=== PATIENT | male | born 1945 | race Caucasian/White ===

== ENCOUNTER 2017-11-27 19:28 | Inpatient (IN) | payer MEDICARE ==
[~2017-11-27] VITALS: Ht 172.7 cm; Wt 89.0 kg
[~2017-11-27 19:28] MED LIST: NORCO1 TA1 PO
--- NOTE | 2017-11-27 19:40 | NUR ---
PT WHEELED TO ROOM [address] MONTEMAYOR INFORMED ABOUT PT.
[2017-11-27] MEDS ORDERED: CANNABIS OIL (19:54)
--- NOTE | 2017-11-27 20:17 | NUR ---
MEDICATED WITH MOTRIN 800 FOR FEVER AND FLUID INFUSING.
[2017-11-27 20:32] LABS: HEMATOCRIT 37.9 % (39.0-50.0); HEMOGLOBIN 12.9 g/dl (14.0-18.0); MEAN CELL VOLUME 85.4 fL CALC (80.0-100.0); MEAN CORPUSCULAR HGB 29.1 pG CALC (26.0-32.0); PLATELET COUNT 391 thou/uL (130-400); RED BLOOD COUNT 4.44 mill/uL (4.70-6.10); RED CELL DISTRI WIDTH 12.8 % (11.5-15.5)
[2017-11-27 20:54] LABS: ALBUMIN 3.8 g/dL (3.2-5.0); ALKALINE PHOSPHATASE 97 u/l (38-126); ANION GAP 19 (6-22 (CALC)); BILIRUBIN, TOTAL 0.3 mg/dL (0.0-1.4); BUN 14 mg/dL (8-23); BUN/CREATININE RATIO 15 (12-20 (CALC)); CARBON DIOXIDE 24 mmol/l (22-30); CHLORIDE 99 mmol/l (95-108); GFR > 60 ML/MIN (>=60 (CALC)); GFR FOR AFR.AMER. > 60 ML/MIN (>=60 (CALC)); POTASSIUM 4.4 mmol/l (3.5-5.1); SGOT/AST 26 u/l (19-48); SGPT/ALT 44 u/l (11-66); SODIUM 138 mmol/l (137-146); TOTAL PROTEIN 7.5 g/dL (6.3-8.2)
--- NOTE | 2017-11-27 21:02 | NUR ---
IV ABX STARTED. REQUEST UA SAMPLE. PT HAS A UROSTOMY ON RLQ ABD W/HERNIA. AWARE, WILL REASSESS PT. PT JOKING WITH STAFF THAT HES "A DIRTY OLD MAN"
[2017-11-27 21:05] LABS: MANUAL DIFFERENTIAL YES
[2017-11-27 21:06] LABS: MYOGLOBIN 81 ng/mL (0 - 121)
[2017-11-27 21:27] LABS: BAND 15 % (0-8)
[2017-11-27 21:44] LABS: INFLUENZA A NONE DETECTED (NONE DETECT); INFLUENZA B NONE DETECTED (NONE DETECT)
--- NOTE | 2017-11-27 22:07 | NUR ---
VALE HUYNH RESUMED CARE OF PT.
[2017-11-27 22:12] LABS: URINE BILIRUBIN - DIPSTICK NEGATIVE (NEGATIVE); URINE BLOOD DIPSTICK LARGE (NEGATIVE); URINE COLOR YELLOW; URINE GLUCOSE - DIPSTICK NEGATIVE (NEGATIVE); URINE KETONE NEGATIVE (NEGATIVE); URINE NITRITE - DIPSTICK NEGATIVE (Negative); URINE PROTEIN - DIPSTICK 100 mg/dL (NEG-TRACE); URINE SPECIFIC GRAVITY 1.015; URINE UROBILINOGEN - DIPSTICK 0.2 E.U./dL (0.2)
[2017-11-27 22:17] LABS: URINE CLARITY CLOUDY; URINE LEUK ESTERASE SMALL (NEGATIVE)
[2017-11-27 22:19] LABS: URINE BACTERIA FEW hpf; URINE RBC TNTC RBC/hpf (0-5); URINE SQUAMOUS EPITHELIAL CELL FEW EPI/hpf (0-FEW)
--- NOTE | 2017-11-27 22:56 | NUR ---
NORMAL SALINE FLUID BOLUS INFUSING.
--- NOTE | 2017-11-27 23:14 | NUR ---
Admission Note Report Given to: EITAN Transported by: Wheelchair X Stretcher Transported with: X Nurse Transporter X Patent IV X O2 X Clinic Office Manager
--- NOTE | 2017-11-27 23:24 | NUR ---
PT ARRIVED TO UNIT VIA STRETCHER WITH ER STAFF. AMBULATED TO BED INDEPENDENTLY. C/O GENERALIZED PAIN 04/04. STATES THAT MOTRIN WAS EFFECTIVE, BUT THE PAIN IS COMING BACK. SHORT OF BREATH WITH EXERTION AND OXYGEN IN PLACE. ORIENTED TO ROOM AND CALL LIGHT SYSTEM. PLAN OF CARE DISCUSSED. PT ENCOURAGED TO VERBLIZE CONCERNS. STATES UNDSTANDING. SAFETY MEASURES IN PLACE. CALL LIGHT WITHIN REACH.
[2017-11-28 00:20] VITALS: BP 135/66
--- NOTE | 2017-11-28 01:30 | NUR ---
PT PERISTENTLY C/O NOT BEING ABLE SLEEP STATING THAT HE HAS NOT SLEPT FOR 4 DAYS. PACING AROUND ROOM AND APPEARS VERY ANXIOUS. RESTORIL GIVEN WITH GOOD EFFECT. PT IS NOW ALSEEP WITH NO SIGNS OF DISTRESS NOTED. RESPIRATIONS EVEN AND UNLABORED ON OXYGEN. IV ABT INFUSING AT THIS TIME WITH NO ADVERSE EFFECT NOTED. USING URINAL TO VOID. SAFETY MEASURES IN PLACE. CALL LIGHT WITHIN REACH.
--- NOTE | 2017-11-28 04:06 | NUR ---
PT ASLEEP AT THIS TIME WITH NO SIGNS OF DISTRESS NOTED. RESPIRATIONS EVEN AND UNLABORED. NON PRODUCTIVE COUGH NOTED. IV SITE APPEARS HEALTHY. SAFETY MEASURES IN PLACE. CALL LIGHT WITHIN REACH.
[2017-11-28 05:20] VITALS: BP 128/71
[2017-11-28 06:32] LABS: HEMATOCRIT 34.2 % (39.0-50.0); HEMOGLOBIN 11.3 g/dl (14.0-18.0); MEAN CELL VOLUME 88.1 fL CALC (80.0-100.0); MEAN CORPUSCULAR HGB 29.1 pG CALC (26.0-32.0); RED BLOOD COUNT 3.88 mill/uL (4.70-6.10); RED CELL DISTRI WIDTH 12.9 % (11.5-15.5)
[2017-11-28 06:44] LABS: ANION GAP 16 (6-22 (CALC)); BUN 11 mg/dL (8-23); BUN/CREATININE RATIO 12 (12-20 (CALC)); CARBON DIOXIDE 27 mmol/l (22-30); CHLORIDE 107 mmol/l (95-108); CREATININE 0.9 mg/dL (0.7-1.3); GFR > 60 ML/MIN (>=60 (CALC)); GFR FOR AFR.AMER. > 60 ML/MIN (>=60 (CALC)); POTASSIUM 4.4 mmol/l (3.5-5.1); SODIUM 146 mmol/l (137-146)
[2017-11-28 08:40] VITALS: BP 142/69
--- NOTE | 2017-11-28 08:40 | NUR ---
ASSESSMENR IS COMPLETED: IV SITE WAS FOUND DISLODGED . BREATH SOUNDS ARE CLEAR, BILATERALLY. TELE MONITOR IN PLACE. CONTINUE TO OSBERVE AND MONITOR.
[2017-11-28 11:50] VITALS: BP 140/67
--- NOTE | 2017-11-28 12:30 | NUR ---
PT IS RELAXING IN BED WITH NO DISTRESS NOTED. IV SITE IS FREE FROM REDNESS OR EDEMA. FAMILY HAS BEEN VISITING
--- NOTE | 2017-11-28 16:30 | NUR ---
PT IS RELAXING IN BED AND HAS BEEN VISITING WITH FAMILY. NO DISTRESS NOTED. IV SITE IS FREE FROM REDNESS OR EDEMA.
[2017-11-28 16:35] VITALS: BP 136/70
[2017-11-28 19:40] VITALS: BP 157/84
--- NOTE | 2017-11-28 19:45 | NUR ---
PATIENT RESTING IN BED AT THIS TIME WITH O2 VIA NASAL CANNULA IN PLACE. PATIENT IS AWAKE ALERT AND ORIENTEDX3. NO COMPLAINTS AT THIS TIME. PATIENT WITH UROSTOMY DRAINING YELLOW URINE. IV SITE TO RIGHT HAND WITH IVF AT KVO RATE. ENCOURAGED PO FLUIDS. PATIENT WITH NON-PRODUCTIVE COUGH. LUNGS ARE CLEAR AND DIMINSHED. SAFETY PRECAUTIONS REINFORCED. CALL LIGHT IN REACH. WILL CONT TO MONITOR.
--- NOTE | 2017-11-28 23:00 | NUR ---
PATIENT HAVING SEVERE COUGHING EPISODE-CALLED FOR NEMB TREATMENT. COUGH IS NON-PRODUCTIVE AT THIS TIME. PATIENT MEDICATED WITH ROBITUSSIN AC AND WITH RESTORIL FOR SLEEP. SAFETY PRECAUTIONS REINFORCED. CALL LIGHT IN REACH. WILL CONT TO MONITOR.
[2017-11-29] VITALS: BP 127/72
[2017-11-29 04:35] VITALS: BP 125/69; BP 143/68
--- NOTE | 2017-11-29 04:54 | NUR ---
PATIENT CALLED AND STATES THAT IV OUT-RESPONDED TO PATIENT ROOM AND FOUND IV DISLODGED. NEW IV SITE STARTED TO RIGHT AC-#22 GAUGE WITH GOOD BLOOD RETURN. IVF NS PATENT AND INFUSING AT KVO RATE. PATIENT WITH NO COMPLAINTS AT THIS TIME. CALL LIGHT IN REACH. WILL CONT TO MONITOR.
[2017-11-29 05:08] LABS: HEMATOCRIT 33.3 % (39.0-50.0); HEMOGLOBIN 10.8 g/dl (14.0-18.0); MEAN CELL VOLUME 88.1 fL CALC (80.0-100.0); MEAN CORPUSCULAR HGB 28.6 pG CALC (26.0-32.0); MEAN CORPUSCULAR HGB CONC 32.4 g/L CALC (32.0-36.0); RED BLOOD COUNT 3.78 mill/uL (4.70-6.10)
[2017-11-29 05:31] LABS: ANION GAP 16 (6-22 (CALC)); BUN 12 mg/dL (8-23); BUN/CREATININE RATIO 14 (12-20 (CALC)); CARBON DIOXIDE 26 mmol/l (22-30); CHLORIDE 107 mmol/l (95-108); CREATININE 0.9 mg/dL (0.7-1.3); GFR > 60 ML/MIN (>=60 (CALC)); GFR FOR AFR.AMER. > 60 ML/MIN (>=60 (CALC)); POTASSIUM 4.5 mmol/l (3.5-5.1); SODIUM 144 mmol/l (137-146)
[2017-11-29 07:50] VITALS: BP 127/61
--- NOTE | 2017-11-29 07:50 | NUR ---
ASSESSMENT IS COMPLETED: IV SITE IS FREE FROM REDNESS OR EDEMA. NO DISTRESS NOTED. CONTINUE TO OSBERVE AND MONITOR.
--- NOTE | 2017-11-29 12:15 | NUR ---
PT IS RELAXING IN BED , IV ANTIBIOTICS COMPLETED AND HEPLOCKED PT , WANTED PT TO AMBULATE, IV SITE IS FREE FROM REDNESS OR EDEMA.
--- NOTE | 2017-11-29 13:32 | NUR ---
PT'S IV SITE FLUSHED. NO DISTRESS NOTED. PT IS AMBULATING IN THE [place] WITH DAUGHTER.
--- NOTE | 2017-11-29 15:02 | NUR ---
TELE MONITOR DISCONTINUED OFF PT. PT FEELS GOOD RIGHT NOW. HAD SOME SOB AFTER AMBULATING.
--- NOTE | 2017-11-29 16:15 | NUR ---
PT HAS BEEN AMBULATING IN THE ROOM AND VISITING WITH FAMILY. NO DISTRES NOTED IV SITE IS FREE FROM REDNESS OR EDEMA. CONTINUE TO OSEBRVE AND MONITOR.
[2017-11-29 16:35] VITALS: BP 117/51
[2017-11-29 18:00] VITALS: BP 130/67
--- NOTE | 2017-11-29 19:31 | NUR ---
PATIENT RESTING IN BED AT THIS TIME-HOB ELEVATED, ALERT AND ORIENTEDX3. O2 OFF WITH NO DISTRESS NOTED. VISITORS AT BEDSIDE. HEP LOCK TO RIGHT AC INTACT AND APPEARS HEALTHY AT THIS TIME. UROSTOMY APPLIANCE INTACT TO RIGHT ABD WITH YEELOW URINE NOTED IN BAG. PATIENT IS ABLE TO DO OWN UROSTOMY CARE AT THIS TIME. SAFETY PRECAUTIONS REINFORCED. CALL LIGHT IN REACH. WILL CONT TO MONITOR.
--- NOTE | 2017-11-29 21:30 | NUR ---
PATIENT STATES THAT HE HAD A SHOWER. RESTING IN BED AT THIS TIME. MEDICATED FOR SLEEP WITH RESTORIL 15MG PO AND ROBITUSSIN AC FOR COUGH. NON-PRODUCTIVE COUGH AT THIS TIME. SAFETY PRECAUTIONS REINFORCED. CALL LIGHT IN REACH. WILL CONT TO MONITOR.
--- NOTE | 2017-11-30 | NUR ---
APPEARS SLEEPING AT THIS TIME WITH EYES CLOSED. CALL LIGHT IN REACH. WILL CONT TO MONITOR.
[2017-11-30 00:05] VITALS: BP 110/61
--- NOTE | 2017-11-30 03:56 | NUR ---
APPEARS SLEEPING AT THIS TIME IN NO ACUTE DISTRESS. LESS COUGHING TONIGHT. CALL LIGHT IN REACH. WILL CONT TO MONITOR.
[2017-11-30 04:14] VITALS: BP 151/73
[2017-11-30 05:33] LABS: HEMATOCRIT 33.6 % (39.0-50.0); HEMOGLOBIN 10.9 g/dl (14.0-18.0); MEAN CELL VOLUME 88.7 fL CALC (80.0-100.0); MEAN CORPUSCULAR HGB 28.8 pG CALC (26.0-32.0); MEAN CORPUSCULAR HGB CONC 32.4 g/L CALC (32.0-36.0); RED BLOOD COUNT 3.79 mill/uL (4.70-6.10); RED CELL DISTRI WIDTH 13.1 % (11.5-15.5)
[2017-11-30 05:46] LABS: ANION GAP 16 (6-22 (CALC)); BUN 15 mg/dL (8-23); BUN/CREATININE RATIO 17 (12-20 (CALC)); CARBON DIOXIDE 26 mmol/l (22-30); CHLORIDE 106 mmol/l (95-108); CREATININE 0.9 mg/dL (0.7-1.3); GFR > 60 ML/MIN (>=60 (CALC)); GFR FOR AFR.AMER. > 60 ML/MIN (>=60 (CALC)); SODIUM 143 mmol/l (137-146)
[2017-11-30 05:50] LABS: POTASSIUM 5.3 mmol/l (3.5-5.1)
[2017-11-30 08:15] VITALS: BP 133/56
--- NOTE | 2017-11-30 08:15 | NUR ---
ASSESSMETN IS COMPLTED: IV SITE IS FREE FROM REDNESS OR EDEMA. NO DISTRESS NOTED. PT IS WAITING TO GO HOME. CONTIEU TO OBSERV EAND MONITOR.
--- NOTE | 2017-11-30 11:00 | NUR ---
IRRIGATED DAIGLE. PRESTON BACK BRIGHT ORANGE FLUID WITH MINIMAL CLOTS. PATIENT TOLERATED WELL. ASSISTED PATIENT UP TO BEDSIDE CHAIR. PATIENT STATES 'I FEEL THE PRESSURE NOW'. DAIGLE PATENT AND DRAINING. WILL CONTINUE TO MONITOR.
[2017-11-30] MEDS ORDERED: PREDNISONE10 MG PO (11:36)
[2017-11-30] MEDS ORDERED: VANTIN200 M1 PO (11:36)
[2017-11-30] MEDS ORDERED: ROBITUSSIN AC10 ML PO (11:36)
--- NOTE | 2017-11-30 12:40 | NUR ---
PT IV SITE DISCONTINEUD CATHETER INTACT. NO REDNESS OR EDEMA. DISCHARGE INSTRUCTIONS GIVEN TO PT AND FAMILY. VERBALIZED UNDERSTANDING. GAVE A CD TO THE PT. Discharge instructions given. Patient verbalizes understanding of same. Discharged in stable condition via Ambulatory to Home with family. All belongings sent with pt.
== END 2017-11-30 12:20 | disposition home or self-care (01) | DRG 689 ==
LOC: ED 19:28 → ED-I 22:16 → ED 22:41 → MS2 22:42
PROVIDERS: Emergency Medicine; ADMIT Internal Medicine; ATTEND Internal Medicine
DX: N39.0 Urinary tract infection, site not specified (principal); J18.9 Pneumonia, unspecified organism; Z93.6 Other artificial openings of urinary tract status; Z90.6 Acquired absence of other parts of urinary tract; B96.1 Klebsiella pneumoniae [K. pneumoniae] as the cause of diseases classified elsewhere; G47.00 Insomnia, unspecified; R59.0 Localized enlarged lymph nodes; Z85.51 Personal history of malignant neoplasm of bladder
CPT/HCPCS: Q9967